=== PATIENT | female | born 1940 | race Caucasian/White ===

== ENCOUNTER 2016-12-16 20:15 | Observation (INO) | payer OTHER, MEDICARE ==
[2016-12-16] MEDS ORDERED: Ondansetron INJ* 2 MG/ML VIAL IV ONE (21:51)
[2016-12-16] MEDS ORDERED: Morphine INJ* 2 MG/ML 1 ML SYRINGE IV ONE (21:51)
[2016-12-16] MEDS ORDERED: NS 0.9% 1000 ML* 1,000 ML IV ONE (21:51)
--- NOTE | 2016-12-16 22:30 | ED ---
Monie Jeffers Claudia, scribed for Pranay Porter MD on 12/16/16 at 2151 . Abdominal Pain/Female - HPI Summary HPI Summary: 76 year old female presents to [facility] ED with abd pain, NVD. Pt states sudden onset of Sx about 1800 today. She notes that she felt a little "off" earlier today but was asymptomatic. She states 2 bouts of forceful emesis at about 1900 tonight. Pt denies any fever, chills as well as any aggravating or alleviating factors. Pt notes diffuse abd pain with an 8/10 on the pain scale. She notes that she has has similar Sx a few years ago and notes she is usually given Doxy. Pt notes eating fruits, granola, cheese and crackers today. - History of Current Complaint Chief Complaint: EDAbdPain Stated Complaint: ABD PAIN/VOMITING Time Seen by Provider: 12/16/16 21:47 Onset/Duration: Sudden Onset, Lasting Hours, Still Present Timing: Constant Pain Intensity: 8 Pain Scale Used: 0-10 Numeric Location: Diffuse Radiates: No Aggravating Factor(s): Nothing Alleviating Factor(s): Nothing Associated Signs and Symptoms: Positive: Nausea, Vomiting, Diarrhea Allergies/Adverse Reactions: Allergies Allergy/AdvReac Type Severity Reaction Status Date / Time No Known Allergies Allergy Verified 02/06/14 11:20 PMH/Surg Hx/FS Hx/Imm Hx Previously Healthy: Yes Endocrine/Hematology History: Denies: Hx Diabetes Cardiovascular History: Denies: Hx Myocardial Infarction History: Reports: Other Problems/Disorders - kidney stone - Surgical History Surgery Procedure, Year, and Place: tubal ligation. tummy tuck - Immunization History Date of Tetanus Vaccine: Unk Date of Influenza Vaccine: Fall 2012 Infectious Disease History: Denies: History Other Infectious Disease, Traveled Outside the [place] in Last 30 Days - Family History Known Family History: Negative: Hypertension, Diabetes - Social History Occupation: Employed Full-time Lives: With Family Alcohol Use: Occasionally Substance Use Type: Reports: None Smoking Status (MU): Never Smoked Tobacco Review of Systems Constitutional: Negative Negative: Fever, Chills Eyes: Negative ENT: Negative Cardiovascular: Negative Respiratory: Negative Positive: Abdominal Pain, Vomiting, Diarrhea, Nausea Genitourinary: Negative Musculoskeletal: Negative Skin: Negative Neurological: Negative Psychological: Normal All Other Systems Reviewed And Are Negative: Yes Physical Exam Triage Information Reviewed: Yes Vital Signs On Initial Exam: Initial Vitals Temp Pulse Resp BP Pulse Ox 97.1 F 60 16 126/69 100 12/16/16 20:53 12/16/16 20:53 12/16/16 20:53 12/16/16 20:53 12/16/16 20:53 Vital Signs Reviewed: Yes Appearance: Positive: Well-Appearing, Pain Distress - mild discomfort Skin: Positive: Warm Head/Face: Positive: Normal Head/Face Inspection Eyes: Positive: KATE ENT: Positive: Hearing grossly normal Neck: Positive: Supple Respiratory/Lung Sounds: Positive: Breath Sounds Present Cardiovascular: Positive: RRR Abdomen Description: Positive: Soft, Other: - mildly diffuse lower abd tenderness rt.lt Bowel Sounds: Positive: Present Musculoskeletal: Positive: Strength/ROM Intact Neurological: Positive: Alert, Oriented to Person Place, Time Psychiatric: Positive: Affect/Mood Appropriate Diagnostics - Vital Signs Vital Signs Temp Pulse Resp BP Pulse Ox 12/16/16 21:13 98.0 F 65 17 120/72 100 12/16/16 20:53 97.1 F 60 16 126/69 100 - Laboratory Result Diagrams: 12/17/16 00:00 12/17/16 00:00 Lab Statement: Any lab studies that have been ordered have been reviewed, and results considered in the medical decision making process. - CT CT ABD/PELVIS CT Interpretation: Positive (See Comments) - HIGH SUSPICION FOR ACUTE APPENDICITIS WITHOUT ABCESS OR FREE AIR. SIGMOID DIVERTICULOSIS WITHOUT DIVERTICULITIS CT Interpretation Completed By: Radiologist Abdominal Pain Fem Course/Dx - Course Course Of Treatment: MDM: AFTER CT ABD/PELVIS AND DISCUSSION WITH DR. CONLEY THE PT WILL BE ADMITTED TO [facility]. - Diagnoses Provider Diagnoses: Appendicitis, acute - Provider Notifications Discussed Care Of Patient With: DR. CONLEY WAS CONSULTED. THE PT WILL BE ADMITTED FOR SURGERY Time Discussed With Above Provider: 01:50 Instructed by Provider To: Admit As Inpatient Discharge - Discharge Plan Condition: Fair Disposition: ADMITTED TO [facility] Referrals: Sheridan Barros MD [Primary Care Provider] - The documentation as recorded by the Monie logan Claudia accurately reflects the service I personally performed and the decisions made by , Pranay Porter MD.
[2016-12-17 00:15] LABS: Hematocrit 43 % (35-47); Hemoglobin 14.5 g/dl (12.0-16.0); Mean Corpuscular HGB Conc 34 g/dl (31-36); Mean Corpuscular Hemoglobin 34 pg (27-31); Mean Corpuscular Volume 100 fL (80-97); Mean Platelet Volume 9 um3 (7.4-10.4); Red Blood Count 4.29 10^6/ul (4.0-5.4); Red Cell Distribution Width 13 % (10.5-15)
[2016-12-17 00:30] LABS: Albumin 4.3 g/dL (3.2-5.2); BUN/Creatinine Ratio 19.7 (8-20); C Reactive Protein 2.01 mg/L (< 5.00); Calcium 9.4 mg/dL (8.6-10.3); EGFR African American 95.7 (>60); EGFR Non-African American 74.4 (>60); Globulin 2.5 g/dL (2-4); Magnesium 2.2 mg/dL (1.9-2.7); Potassium 3.4 mmol/L (3.5-5.0); Total Bilirubin 0.5 mg/dL (0.2-1.0); Total Protein 6.8 g/dL (6.4-8.9)
[2016-12-17] MEDS ORDERED: Iohexol 300* (CONTRAST) 10 ML SDV IV ONE (00:57)
[2016-12-17 01:05] LABS: Urine Bacteria Absent (Absent); Urine Bilirubin Negative (Negative); Urine Glucose Negative (Negative); Urine Nitrite Negative (Negative)
[2016-12-17] MEDS ORDERED: Ondansetron INJ* 2 MG/ML VIAL IV PRN (01:55)
[2016-12-17] MEDS ORDERED: Acetaminophen TAB* 325 MG PO PRN (01:55)
[2016-12-17] MEDS ORDERED: Zosyn per Pharmacy* NOTE FOLLOW UP SCH (02:00)
[2016-12-17] MEDS ORDERED: NS 0.9% 1000 ML* 1,000 ML IV SCH (02:00)
[2016-12-17] MEDS ORDERED: ZOSYN 3.375 GM x ONE DOSE over 30 miuntes IVPB ×2 (04:00)
[2016-12-17] MEDS: Morphine INJ* 2 MG/ML 1 ML SYRINGE IV PRN ×2 (04:18→08:06)
[2016-12-17] MEDS ORDERED: ZOSYN 3.375 GM Q8H per EXTENDED INFUSION IVPB SCH ×2 (08:00)
--- NOTE | 2016-12-17 08:09 | RAD ---
INDICATION: Lower abdominal pain, history of diverticulitis. COMPARISON: Comparison is made with a prior CT of the abdomen and pelvis from February 06, 2014. TECHNIQUE: A CT scan of the abdomen and pelvis was performed with intravenous and oral contrast following intravenous injection of 93 ml of Omnipaque 300 nonionic contrast. Contiguous axial sections were obtained from the lung bases through the symphysis pubis. Images were reconstructed in the coronal and sagittal planes. FINDINGS: The lung bases are clear. No pleural effusion is present. The liver and spleen are normal in size. There are 2 small fluid density lesions present centrally in the superior portion of the liver measuring 1.2 and 0.9 cm in size most consistent with cysts which have increased slightly in size from the prior study. No calcified gallstones are seen. The pancreas appears to be within normal limits. The kidneys and adrenal glands are normal in size. No hydronephrosis is seen. There is a small 1.2 cm cyst in the upper pole of the left kidney. The aorta is normal in caliber and demonstrates homogeneous contrast opacification. No significant enlarged retroperitoneal lymph nodes are seen. The stomach, small and large bowel appear nondistended. The appendix is dilated measuring up to 1.6 cm in diameter with a thickened wall and appendicoliths. There is mild stranding in the adjacent mesenteric fat in mild wall thickening at the base of the cecum. These findings are all consistent with acute appendicitis. There is moderate to severe descending and sigmoid diverticulosis without evidence for diverticulitis. The uterus is anteverted and normal in size. No free intraperitoneal air or fluid is seen. No significant focal osseous abnormality is seen. IMPRESSION: FINDINGS MOST CONSISTENT WITH ACUTE APPENDICITIS.
--- NOTE | 2016-12-17 09:22 | HP ---
CC: [facility]; Dr. Barros at [facility] * HISTORY AND PHYSICAL: The patient is being seen in short-stay unit bed #340. DATE OF ADMISSION: 12/17/16 CHIEF COMPLAINT: Right lower quadrant abdominal pain. HISTORY OF PRESENT ILLNESS: Sandhya Garcia is a pleasant and healthy 76-year- old woman who was driving home later in the day yesterday when she developed some generalized abdominal pain, mainly in the lower quadrant, associated with nausea. She subsequently developed some vomiting of the food that she had recently eaten. She then developed anorexia. She had several loose bowel movements. Pain became worse over the next several hours, becoming somewhat more localized in the right lower quadrant. She then presented to the emergency room here at [facility]. At that time, she was found to be afebrile. She was noted to have tenderness in both lower quadrants, right greater than left, of her abdomen. Laboratory workup included a white blood cell count of 11,000. Chemistry tests were all unremarkable, including a lactic acid of 1.1. Urinalysis was normal. In light of her right lower quadrant abdominal discomfort, she underwent a CT scan of the abdomen and pelvis. I did review these images. This shows a dilated appendix in the right lower quadrant with what appears to be a calcified appendicolith within the lumen. There is no significant periappendiceal inflammation or stranding, nor is there fluid, or evidence of abscess/perforation. This was read as early acute appendicitis. Also noted was some sigmoid colon diverticulosis. There is no evidence of diverticulitis. Surgical consultation was obtained and she has been admitted for surgical care for her acute appendicitis. PAST MEDICAL HISTORY: Unremarkable. PAST SURGICAL HISTORY: 1. Tubal ligation. 2. Abdominoplasty, done in [place] many years ago. ALLERGIES: She has no known drug allergies, although she may have had some adverse reaction to an oral antibiotic given to her several years ago for diverticulitis, but she is not certain of the name. SOCIAL HISTORY: Socially, she does not use tobacco. She drinks alcohol with several glasses of wine in the evening with dinner. 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 REVIEW OF SYSTEMS: Cardiovascular: She has no history of chest pain, coronary artery disease, or hypertension. Pulmonary: No wheezing, hemoptysis or history of asthma. GI: As per above. She has a history of diverticulitis, most recently in 2015. She underwent a colonoscopy several years ago at the [facility] which showed diverticular disease, but no other acute abnormality. : No urgency or hematuria. PHYSICAL EXAMINATION GENERAL: In general, she is a well-developed, well-nourished female, appears to be in no apparent distress. She is quite alert, conversive. VITAL SIGNS: Temperature 98, pulse 61, blood pressure 131/63, respirations 16. HEENT: Sclerae is anicteric. Oral mucosa is slightly dry. LUNGS: Clear to auscultation with normal respiratory efforts. HEART: Regular rate and rhythm without murmurs, rubs, or gallops. ABDOMEN: Soft, slightly distended. She had diminished bowel sounds throughout. She has a well-healed low transverse incision several fingerbreadths above the pubic tubercle that extends from the left iliac crest to the right iliac crest from the previous abdominoplasty. I appreciate no hernias. She has a circular incision around the umbilicus. She has tenderness in the right lower quadrant with guarding and slight rigidity. She has some mild peritoneal irritation to this area, but no generalized peritonitis. PSYCHIATRIC: She is awake, alert, and oriented x3. She has normal judgement and insight. IMPRESSION: Acute appendicitis. Her history and physical exam are consistent with this, and the CT scan confirms a dilated appendix with appendicolith. This appears to be an early presentation without evidence of abscess or perforation. PLAN: 1. The patient has been admitted to the surgical service on the short-stay unit. 2. She has been kept n.p.o. and started on IV fluids. 3. She has intravenous Zosyn. This has been started for treatment of acute appendicitis. 4. Plan will be for a laparoscopic appendectomy later this morning or early this afternoon depending on the operating room schedule and availability. I discussed the procedure with her and the risks, benefits, and alternatives. Nonoperative management for acute appendicitis with IV antibiotics and with conversion to oral antibiotics was discussed, but it is stressed that this is not the standard of care here in the [place]; and, with an appendicolith, I do not believe that she is a candidate for this management. The surgical procedure was discussed with her. The risks are but not limited to bleeding, infection, intraabdominal abscess formation, injury to peritoneal and retroperitoneal structures, possibility of an open procedure, risk of anesthesia, deep vein thrombosis, and pulmonary embolism as well as hospital stay and recovery times were discussed as well. In addition, I discussed with her that I will not be the operating surgeon with another member of the [facility] due to operating time and the surgeon's scheduling, and she is comfortable with this. [id number]/[facility] #: [id number] ROMI
[2016-12-17] MEDS ORDERED: Propofol* 10 MG/ML 20 ML BTL IV PUSH ONE (11:09)
[2016-12-17] MEDS ORDERED: Midazolam* 1 MG/ML 2 ML VIAL (2 MG) ONE (11:09)
[2016-12-17] MEDS ORDERED: fentaNYL* 50 MCG/ML 2 ML VIAL (100 MCG VIAL) ONE (11:09)
[2016-12-17] MEDS ORDERED: KETAMINE HCL* 50 MG/ML 10 ML VIAL ONE (11:23)
[2016-12-17] MEDS ORDERED: Lidocaine 1% INJ* 10 MG/ML 30 ML SDV ONE (11:26)
[2016-12-17] MEDS ORDERED: Bupivacaine 0.25% EPI 200,000* 30 ML SDV ONE (11:35)
[2016-12-17] MEDS ORDERED: Phenylephrine IV* 40 MCG/ML 10 ML SYRINGE ONE (12:18)
[2016-12-17] MEDS ORDERED: Rocuronium* 10 MG/ML VIAL ONE (12:22)
[2016-12-17] MEDS ORDERED: Glycopyrrolate IV* 0.2 MG/ML 1 ML VIAL ONE (12:58)
[2016-12-17] MEDS ORDERED: Ketorolac INJ* 30 MG/ML 1 ML VIAL ONE (12:58)
[2016-12-17] MEDS ORDERED: Neostigmine Methylsulfate* 2 MG/2 ML SYRINGE ONE (12:58)
[2016-12-17] MEDS ORDERED: HYDROmorphone* 1 MG/ML 1 ML SYR IV PRN (13:16)
[2016-12-17] MEDS ORDERED: fentaNYL* 50 MCG/ML 2 ML VIAL (100 MCG VIAL) IV PRN (13:16)
[2016-12-17] MEDS ORDERED: DiMENhydriNATE IV* 50 MG/ML VIAL IV PUSH PRN (13:16)
[2016-12-17] MEDS ORDERED: Acetaminophen TAB* 325 MG ONE (14:23)
[2016-12-17] MEDS ORDERED: HYDROmorphone* 1 MG/ML 1 ML SYR ONE (14:49)
[2016-12-17 16:27] VITALS: BP 108/69
--- NOTE | 2016-12-17 23:48 | OP ---
CC: Sheridan Barros MD * DATE OF OPERATION: 12/17/16 - ROOM #340 DATE OF : 44 SURGEON: Pranay Colorado MD SEPTIC TANK INSTALLER: None. ANESTHESIOLOGIST: Earl Ozuna MD ANESTHESIA: General anesthetic, local infiltration. PRE-OP DIAGNOSIS: Acute appendicitis. POST-OP DIAGNOSIS: Acute appendicitis. OPERATIVE PROCEDURE: Laparoscopic appendectomy. DESCRIPTION OF PROCEDURE: The patient was supine on the operative table. After adequate general anesthetic, compression stockings, Gian Hugger warmer, and intravenous antibiotics, the abdomen was prepped with antiseptic, draped in a sterile fashion. Local anesthetic was administered and the umbilical incision was created and entered with blunt port cannula. Insufflation was carried out with carbon dioxide. Additional cannulae 5-mm left lower quadrant, left mid abdomen were placed through small stab wounds under direct vision. The appendix was thickened and inflamed with some suppurative changes and it was stuck down along the terminal ileum heading down towards the pelvic side wall. It was difficult to peel up in the mesentery, the appendix was thickened and foreshortened, so it was felt the best way to do was to divide the appendix at its base, this was accomplished using [employer] CASEY stapler. The mesoappendix was then divided using the LigaSure device. Upon taking the appendix off the terminal ileum, it was noted that there was a tiny burn wound on the wall of the ileum, so this was delivered through the umbilical incision and 3-0 silk Lembert suture was placed to invert that area. The bowel was returned to its natural position and inspection revealed excellent staple line and everything else in good condition. The appendix was removed in its retrieval bag and the umbilical fascia was closed with 0 Polysorb, skin with 5- 0 Polysorb in all cases followed by Steri-Strips. She tolerated the procedure well, was awakened and brought to Recovery in good condition. There were no drains left in place. Pathologic specimen is appendix. Sponge and instrument counts correct. Estimated blood loss is 10 mL. [id number]/[facility] #: [id number] [facility]
--- NOTE | 2016-12-23 02:55 | DS ---
CC: Pranay Colorado MD; [facility]: DATE OF ADMISSION: 12/17/16 DATE OF DISCHARGE: 12/17/16 OPERATION ON THIS ADMISSION: Laparoscopic appendectomy. HISTORY: The patient is a 76-year-old female who came to the hospital the evening of 12/16/16, was admitted in the wee hours of the morning and taken to the operating room later that morning where sh caleb underwent uneventful laparoscopic appendectomy, which confirmed acute appendicitis. She had an un eventful postop recovery and was discharged home later the same day with an instruction sheet and to lerating oral intake. She will follow up in the office in the near future. [id number]/[facility] #: [id number]
== END 2016-12-17 17:21 | disposition home or self-care (01) ==
LOC: ED 20:15 → SSU 12-17 01:55
PROVIDERS: ADMIT Surgery; ATTEND Surgery
PROC: 0DTJ4ZZ Resection of Appendix, Percutaneous Endoscopic Approach (ICD-10-PCS; principal; 2016-12-17 12:15)
DX: K35.80 Unspecified acute appendicitis (principal); R10.9 Unspecified abdominal pain
CPT/HCPCS: 36415; 74177; 80053; 81003; 81015; 83605; 83690; 83735; 85025; 86140; 87086; 88304; 99284; A9270-GY; C1776; G0378; J1170; J1885; J2001; J2250; J2270; J2405; J2543; J2704; J3010; Q9967